=== PATIENT | male | born 1995 | race Caucasian/White ===

== ENCOUNTER 2018-09-21 20:43 | Inpatient (IN) | payer BC ==
--- NOTE | 2018-09-21 21:10 | ED Physician Chart ---
ED Chief Complaint/HPI - Patient Information Date Seen:: 09/21/18 Time Seen:: 20:50 Chief Complaint:: upper abdominal pain History of Present Illness:: About 2 hours ago patient developed upper abdominal pain. Then he ate [place] food after which he vomited. He vomited what he had eaten and also about one cup of red and brown fluid. He had not eaten or drank anything which was brown or red. Allergies:: Allergies Allergy/AdvReac Type Severity Reaction Status Date / Time No Known Allergies Allergy Verified 09/21/18 20:58 Vitals:: Vital Signs - 8 hr 09/21/18 20:45 Temp 97.2 F HR 121 RR 20 BP 123/79 O2 Sat % 96 Historian:: Patient Review:: Nurse's Note Reviewed ED Review of Systems - Review of Systems General/Constitutional: No fever, No chills Skin: No skin lesions Head: No headache Eyes: No loss of vision ENT: No earache Neck: No neck pain, No swelling Cardio Vascular: No chest pain, No palpitations Pulmonary: No SOB GI: Nausea, Vomiting, Hematemesis G/U: No dysuria Musculoskeletal: No bone or joint pain Endocrine: No polyuria, No polydipsia Psychiatric: No prior psych history Hematopoietic: No bruising Allergic/Immuno: No urticaria Neurological: No syncope, No focal symptoms ED Past Medical History - Past Medical History Past Medical History: No significant medical hx Family History: HTN Social History: Non Smoker, No Alcohol Surgical History: None Psychiatricy History: None Medication: None Family Medical History - Family Member Father Hx Family Hypertension: Yes ED Physical Exam - Physical Examination General/Constitutional: Awake, Well-developed, well-nourished, Alert, No distress, GCS 15, Non-toxic appearing, Ambulatory Head: Atraumatic Eyes: Lids, conjuctiva normal, PERRL, EOMI Skin: Nl inspection, No rash, No skin lesions, No ecchymosis, Well hydrated, No lymphadenopathy ENMT: External ears, nose nl, Nasal exam nl Other ENMT comments:: 3 out of 4 peridontal disease Neck: Nontender, Full ROM w/o pain, No JVD, No nuchal rigidity, No bruit, No mass, No stridor Respiratory: Nl effort/Exclusion, Clear to Auscultation, No Wheeze/Rhonchi/Rales Cardio Vascular: RRR, No murmur, gallop, rubs, NL S1 S2 GI: No organomegaly, No hernia, Normal BS's, Nondistended, No mass/bruits, No McBurney tenderness Other GI comments:: Epigastric tenderness : No CVA tenderness Extremities: No tenderness or effusion, Full ROM, normal strength in all extremities, No edema, Normal digits & nails Neuro/Psych: Alert/oriented, DTR's symmetric, Normal sensory exam, Normal motor strength, Judgement/insight normal, Mood normal, Normal gait, No focal deficits Misc: Normal back, No paraspinal tenderness ED Labs/Radiology/EKG Results - Lab Results Results: Abnormal Lab Results 09/21/18 09/21/18 09/21/18 21:19 21:19 21:19 WBC 10.8 RBC 5.07 Hgb 15.7 Hct 45.5 MCV 89.8 MCH 31.0 H MCHC Differential 34.5 RDW 12.2 Plt Count 270 MPV 9.4 Neutrophils % 64.6 Lymphocytes % 19.9 L Monocytes % 12.8 H Eosinophils % 0.5 Basophils % 2.2 H PT 9.8 INR 0.94 PTT (Actin FS) 26.8 Sodium 140 Potassium 3.8 Chloride 105 Carbon Dioxide 25.6 Anion Gap 13.2 BUN 10 Creatinine 0.9 Est GFR ( Amer) > 60.0 Est GFR (Non-Af Amer) > 60.0 BUN/Creatinine Ratio 11.1 Glucose 107 H Calcium 9.5 Magnesium 2.2 Lipase 26 ED Assessment - Assessment General Assessment: Patient is hemodynamically stable but better to admit since although unlikely patient (if he has had a GI bleed tonight) could in near future have a larger one. Patient had no vomiting while in the emergency department. ED Septic Shock - . Is Septic Shock (SBP<90, OR Lactate>4 mmol\L) present?: No - <6hrs of presentation: Vital Signs: Vital Signs - 8 hr 09/21/18 20:45 Temp 97.2 F HR 121 RR 20 BP 123/79 O2 Sat % 96 ED Reassessment (Disposition) - Reassessment Reassessment Condition:: Unchanged - Diagnosis Diagnosis:: Upper gastrointestinal bleed; hematemesis - Patient Disposition Admitted to:: Med/Surg Condition at Disposition:: Stable, Unchanged
[2018-09-21 21:26] LABS: % BASOPHILS 2.2 % (0.0-2.0); % EOSINOPHILS 0.5 % (0.0-5.0); % LYMPHOCYTES 19.9 % (20.0-50.0); % MONOCYTES 12.8 % (2.0-10.0); % NEUTROPHILS 64.6 % (40.0-80.0); BASOPHILE ABSOLUTE 0.2 Th/cumm (0-0.2); EOSINOPHILE ABSOLUTE 0.1 Th/cmm (0.1-0.4); HEMATOCRIT 45.5 % (41.0-60); HEMOGLOBIN 15.7 gm/dL (12-16); LYMPHOCYTE ABSOLUTE 2.1 Th/cmm (1.5-3.0); MEAN CELL VOLUME 89.8 fl (80-99); MEAN CORPUSCULAR HGB CONC 34.5 pg (28.0-36.0); MEAN PLATELET VOLUME 9.4 fl; MONOCYTE ABSOLUTE 1.4 Th/cmm (0.3-1.0); PLATELET COUNT 270 Th/cmm (150-400); RED BLOOD COUNT 5.07 Mil/cmm (4.30-5.70); RED CELL DISTRIBUTION WIDTH 12.2 % (11.5-20.0); WHITE BLOOD COUNT 10.8 Th/cmm (4.8-10.8)
[2018-09-21 21:37] LABS: INR 0.94 (0.5-1.4); PROTHROMBIN TIME (TEST) 9.8 SECONDS (9.5-11.5)
[2018-09-21 21:41] LABS: ANION GAP 13.2 (7.0-16.0); BUN - UREA NITROGEN 10 mg/dL (7-25); CALCIUM SERUM 9.5 mg/dL (8.6-10.3); CARBON DIOXIDE 25.6 mEq/L (21.0-31.0); CHLORIDE 105 mEq/L (98-107); CREATININE - SERUM 0.9 mg/dL (0.7-1.3); GFR AFRICAN-AMERICAN > 60.0 ml/min (>90); GFR NON AFRICAN-AMERICAN > 60.0 ml/min; GLUCOSE 107 mg/dL (70-105); LIPASE 26 U/L (11-82); MAGNESIUM 2.2 mg/dL (1.9-2.7); POTASSIUM SERUM 3.8 mEq/L (3.5-5.1); SODIUM SERUM 140 mEq/L (136-145)
[2018-09-22 00:09] VITALS: BP 135/51
[2018-09-22] MEDS: Sodium Chloride 0.9% 1,000 ML IV SCH ×2 (01:01→10:44)
[2018-09-22] MEDS ORDERED: HYDROmorphone 1 mg/mL 1mL Syr IVP PRN (01:20)
[2018-09-22 04:48] LABS: % BASOPHILS 0.1 % (0.0-2.0); % EOSINOPHILS 0.7 % (0.0-5.0); % LYMPHOCYTES 20.3 % (20.0-50.0); % MONOCYTES 14.3 % (2.0-10.0); % NEUTROPHILS 64.6 % (40.0-80.0); EOSINOPHILE ABSOLUTE 0.1 Th/cmm (0.1-0.4); HEMATOCRIT 41.6 % (41.0-60); HEMOGLOBIN 14.2 gm/dL (12-16); MEAN CELL VOLUME 90.5 fl (80-99); MEAN CORPUSCULAR HEMOGLOBIN 30.8 pg (26.0-30.0); MEAN CORPUSCULAR HGB CONC 34.1 pg (28.0-36.0); MEAN PLATELET VOLUME 9.3 fl; MONOCYTE ABSOLUTE 1.4 Th/cmm (0.3-1.0); NEUTROPHILE ABSOLUTE 6.4 Th/cmm (1.8-8.0); PLATELET COUNT 271 Th/cmm (150-400); RED CELL DISTRIBUTION WIDTH 12.8 % (11.5-20.0); WHITE BLOOD COUNT 9.9 Th/cmm (4.8-10.8)
--- NOTE | 2018-09-22 08:49 | History and Physical ---
History of Present Illness - HPI Chief Complaint: Red vomit HPI: Patient refer that he ate [place]apan[place] food and after he had abdominal pain and a red vomit that he thinks was blood because he did not eat any red food. Since then patient has not having any more red vomit. Vital Signs: Last Vital Signs Temp 98.4 F 09/22/18 07:53 Pulse 95 09/22/18 07:53 Resp 18 09/22/18 07:53 BP 132/87 09/22/18 07:53 Pulse Ox 100 09/22/18 07:53 Past Medical History Cardiovascular: Report: No Pertinent Hx Pulmonary: Report: No Pertinent Hx STADIUM ATTENDANT: Report: No Pertinent Hx GI: Report: No Pertinent Hx Psych: Report: No Pertinent Hx Musculoskeletal: Report: No Pertinent Hx Rheumatologic: Report: No pertinent Hx Renal/: Report: No Pertinent Hx Endocrine: Report: No Pertinent Hx - Past Surgical History Past Surgical History: No pertinent Hx Family Medical History - Family Member Father Hx Family Hypertension: Yes Social History Smoke: No Alcohol: None Drugs: None Lives: With Family Domestic Violence: Negative - Allergies Allergies/Adverse Reactions: Allergies Allergy/AdvReac Type Severity Reaction Status Date / Time No Known Allergies Allergy Verified 09/21/18 20:58 Review of Systems - Review of Systems Constitutional: Report: No Significant Eyes: Report: No Significant ENT: Report: No Significant Respiratory: Report: No Significant Cardiovascular: Report: No Significant Gastrointestinal: Report: Abdominal Pain Genitourinary: Report: No Significant Musculoskeletal: Report: No Significant Skin: Report: No Significant Neurological: Report: No Significant Physical Exam - Physical Exam HEENT: Report: Ears Nose Throat within normal limits Neck: Report: Within normal limits Cardiovascular Systems: Report: Regular, Rate and Rhythm Respiratory: Report: Breath Sounds are within normal limits Abdomen: Report: Non-tender to palpation Back: Report: Inspection of back is within normal limits. Extremities: Report: Non-tender to palpation. Skin: Report: Color of skin is within normal limits Neuro/Psych: Report: Mood affect is within normal limits, CN II-XII intact - Lab Results All Lab Results last 24 hours: Laboratory Results - last 24 hr 09/21/18 09/21/18 09/21/18 21:19 21:19 21:19 WBC 10.8 RBC 5.07 Hgb 15.7 Hct 45.5 MCV 89.8 MCH 31.0 H MCHC Differential 34.5 RDW 12.2 Plt Count 270 MPV 9.4 Neutrophils % 64.6 Lymphocytes % 19.9 L Monocytes % 12.8 H Eosinophils % 0.5 Basophils % 2.2 H PT 9.8 INR 0.94 PTT (Actin FS) 26.8 Sodium 140 Potassium 3.8 Chloride 105 Carbon Dioxide 25.6 Anion Gap 13.2 BUN 10 Creatinine 0.9 Est GFR ( Amer) > 60.0 Est GFR (Non-Af Amer) > 60.0 BUN/Creatinine Ratio 11.1 Glucose 107 H Calcium 9.5 Magnesium 2.2 B-Natriuretic Peptide Lipase 26 09/22/18 09/22/18 04:05 04:05 WBC 9.9 RBC 4.60 Hgb 14.2 Hct 41.6 MCV 90.5 MCH 30.8 H MCHC Differential 34.1 RDW 12.8 Plt Count 271 MPV 9.3 Neutrophils % 64.6 Lymphocytes % 20.3 Monocytes % 14.3 H Eosinophils % 0.7 Basophils % 0.1 PT INR PTT (Actin FS) Sodium Potassium Chloride Carbon Dioxide Anion Gap BUN Creatinine Est GFR ( Amer) Est GFR (Non-Af Amer) BUN/Creatinine Ratio Glucose Calcium Magnesium B-Natriuretic Peptide < 5.0 L Lipase - Assessment Assessment: Patient is awake, alert, calm, in no acute distress. Dx: Possible upper GI bleeding (hematemesis). - Plan Plan: Patient in IV NS, NPO, pain control. Awaitting GI evaluation. Will continue to monitor.
--- NOTE | 2018-09-22 11:25 | Discharge Summary ---
General Discharge Summary - Discharge Summary Date of Admission: 09/21/18 Discharge Date: 09/22/18 Laboratory Findings: Laboratory Results - last 24 hr 09/21/18 09/21/18 09/21/18 21:19 21:19 21:19 WBC 10.8 RBC 5.07 Hgb 15.7 Hct 45.5 MCV 89.8 MCH 31.0 H MCHC Differential 34.5 RDW 12.2 Plt Count 270 MPV 9.4 Neutrophils % 64.6 Lymphocytes % 19.9 L Monocytes % 12.8 H Eosinophils % 0.5 Basophils % 2.2 H PT 9.8 INR 0.94 PTT (Actin FS) 26.8 Sodium 140 Potassium 3.8 Chloride 105 Carbon Dioxide 25.6 Anion Gap 13.2 BUN 10 Creatinine 0.9 Est GFR ( Amer) > 60.0 Est GFR (Non-Af Amer) > 60.0 BUN/Creatinine Ratio 11.1 Glucose 107 H Calcium 9.5 Magnesium 2.2 B-Natriuretic Peptide Lipase 26 09/22/18 09/22/18 04:05 04:05 WBC 9.9 RBC 4.60 Hgb 14.2 Hct 41.6 MCV 90.5 MCH 30.8 H MCHC Differential 34.1 RDW 12.8 Plt Count 271 MPV 9.3 Neutrophils % 64.6 Lymphocytes % 20.3 Monocytes % 14.3 H Eosinophils % 0.7 Basophils % 0.1 PT INR PTT (Actin FS) Sodium Potassium Chloride Carbon Dioxide Anion Gap BUN Creatinine Est GFR ( Amer) Est GFR (Non-Af Amer) BUN/Creatinine Ratio Glucose Calcium Magnesium B-Natriuretic Peptide < 5.0 L Lipase Inpatient Medications: Current Medications Hydromorphone HCl (Dilaudid) 1 mg IVP Q8HR PRN PRN Reason: Pain (Moderate) Stop: 09/27/18 01:19 Last Admin: 09/22/18 01:46 Dose: 1 mg Sodium Chloride (Nacl 0.9%) 1,000 mls @ 100 mls/hr IV .Q10H SELWYN Stop: 11/21/18 00:08 Last Admin: 09/22/18 10:44 Dose: 100 mls/hr Ondansetron HCl (Zofran) 4 mg IV Q6H PRN PRN Reason: nausea/vomiting Stop: 11/21/18 09:29 Last Admin: 09/22/18 10:45 Dose: 4 mg Pantoprazole Sodium (Protonix) 40 mg IVP DAILY SELWYN Stop: 11/21/18 08:59 Last Admin: 09/22/18 10:44 Dose: Not Given Consults and Follow-Up: not on staff,PCP is [Primary Care Provider] - SERENA OGDEN [Other]
--- NOTE | 2018-09-22 12:17 | Diagnostic Imaging Report ---
Abdominal ultrasound HISTORY: Pain, hematemesis The liver appears enlarged. No focal lesions. The gallbladder appears normal. No calculi are seen. No biliary dilatation. The pancreas cannot be well seen due to bowel gas. The kidneys appear normal bilaterally. Spleen is generous in size. No other retroperitoneal or intra-abdominal abnormalities. IMPRESSION: 1. Hepatomegaly with a somewhat generous splenic size. 2. No other abnormalities
--- NOTE | 2018-09-23 01:59 | Consultation ---
DATE OF CONSULTATION: 09/22/2018 REASON FOR CONSULTATION: GI bleed. HISTORY OF PRESENT ILLNESS: This consult was obtained through discussion of Dr. Mcfadden for this 23-year-old with insignificant past medical history other than obesity, who presented to the hospital because of hematemesis. Apparently, the patient has been sick for a couple of weeks with coughing, flu-like symptoms, or congestion. He was taking Nyquil or DayQuil and then yesterday he had an episode of vomiting, which was dark and then a little bit of blood, so he came to the hospital. The patient was admitted. GI consult was called in for further evaluation. The patient denies any weight loss. No prior episodes of nausea, vomiting, or hematemesis. No diarrhea or constipation. PAST MEDICAL HISTORY: Negative. PAST SURGICAL HISTORY: Negative. SOCIAL HISTORY: Does not smoke, does not drink, non-IV drug abuser. FAMILY HISTORY: Noncontributory. ALLERGIES: No known drug allergies. MEDICATIONS: Only Nyquil or DayQuil. REVIEW OF SYSTEMS: No weight loss, no prior episodes of hematemesis. No nausea or vomiting. It happened only one time and no abdominal pain. PHYSICAL EXAMINATION: GENERAL: The patient is awake, oriented to self, place, and time, in no acute distress. VITAL SIGNS: Blood pressure is 132/87, heart rate 95, respiratory rate 18, and temperature 98.4. HEAD AND NECK: Pupils reactive to light and accommodation. Extraocular muscles intact. Sclerae are anicteric. Conjunctivae not pale. Oral cavity, no lesion. NECK: Supple. CHEST: Good air entry. LUNGS: Clear to auscultation. CARDIOVASCULAR: Regular rate and rhythm. No murmur or gallop. ABDOMEN: Soft, positive bowel sound. Abdomen was not tender. EXTREMITIES: Showed slight epigastric tenderness. EXTREMITIES: Lower extremities, no edema. CENTRAL NERVOUS SYSTEM: Nonfocal. LABORATORY DATA: CBC is normal. Chemistry is normal. No x-ray was done. IMPRESSION: A 23-year-old with an episode of hematemesis or coffee ground emesis. ASSESSMENT AND PLAN: Coffee-ground emesis or hematemesis. The patient has been coughing for a while. He has been taking some medications, decongestants, so this could have been some sort of gastritis or small Rosalinda-Stephenson tear. At this time, there is no alarming signs. There is no weight loss. There is no more nausea or vomiting. There is no dysphagia. The patient never suffered from acid reflux, so he may need evaluation, but it is not an emergency. So at this time, he will be started on a PPI. We will start him on full liquid diet. We will monitor his labs. If there is a drop of H and H, then he will be scoped. If there is more episodes, he will be scoped. If he is improving, this could be done as an elective unless the patient stay in the hospital for other reasons then it can be done for that. My business card was given to the patient. Him and his girlfriend was instructed to follow up with us in the office later on . Cough and congestion, it seem this is his main problem at this time, so further plan per PCP. Thank you, Dr. Mcfadden, for allowing me to participate in the care of the patient. If you have any further questions, please let me know. JOB# [id number]
== END 2018-09-22 14:05 | disposition home or self-care (01) | DRG 378 ==
LOC: ER 20:43 → MSI 22:50
PROVIDERS: ADMIT General Practice; ATTEND General Practice
DX: K92.0 Hematemesis (principal); Z68.41 Body mass index [BMI] 40.0-44.9, adult; E66.9 Obesity, unspecified; Z82.49 Family history of ischemic heart disease and other diseases of the circulatory system
CPT/HCPCS: 36415-UA; 76700-TC; 80048-TC; 83690-TC; 83735-TC; 83880-TC; 85025-TC; 85610-TC; 85730-TC; C9113; J1170; J2405; J7030